=== PATIENT | female | born 1940 | race Caucasian/White ===

== ENCOUNTER → 2017-07-21 | Outpatient (CLI) | payer MEDICARE, OTHER ==
--- NOTE | 2017-07-21 15:39 | US ---
EXAMINATION TYPE: US thyroid st tissue head/neck DATE OF EXAM: 07/21/2017 COMPARISON: NONE CLINICAL HISTORY: Thyroiditis E06.9. GLAND SIZE: Right Lobe: 4.4 x 1.6x 1.5 cm Overall Parenchyma: homogenous Left Lobe: 4.0 x 1.5 x 1.5 cm Overall Parenchyma: homogeneous Isthmus Thickness: 0.5 cm NODULES RIGHT: # of nodules measured on right: 2 1. 0.5 X 0.4 x 0.3 cm hypoechoic mixed nodule at the mid medial pole with well-defined margins. Thi s nodule is wider than tall and shows no intranodular vascularity. 2. 0.4 X 0.3 x 0.3 cm hypoechoic cystic nodule at the lower pole with well-defined margins. This no dule is wide as is tall and shows no intranodular vascularity. LEFT: # of nodules measured on left: 1 1. 1 X 0.7 x 0.7 cm isoechoic solid consolidated nodule at the lower pole with well-defined margin s. This nodule is wider as is tall and shows no intranodular vascularity. ISTHMUS: # of nodules measured in the isthmus: 1 1. 0.9 X 0.8 x 0.4 cm hypoechoic mixed nodule at the right pole with well-defined margins. This no dule is wider than tall and shows intranodular vascularity. Bilateral neck scanned, no evidence of lymphadenopathy. 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 Subcentimeter isthmus nodule. Isoechoic left thyroid nodule
== END | disposition home or self-care (01) ==
LOC: RADUSWWP 14:02
PROVIDERS: ATTEND Family Medicine
DX: E04.2 Nontoxic multinodular goiter (principal)
CPT/HCPCS: 76536

== ENCOUNTER → 2018-01-22 | Outpatient (CLI) | payer MEDICARE, OTHER ==
--- NOTE | 2018-01-24 12:45 | US ---
EXAMINATION TYPE: US thyroid st tissue head/neck DATE OF EXAM: 01/22/2018 COMPARISON: US 2018 CLINICAL HISTORY: E06.9 Thyroiditis. GLAND SIZE: Right Lobe: 3.8 x 1.6 x 2.0 cm Overall Parenchyma: homogenous Left Lobe: 4.2 x 1.2 x 1.2 cm Overall Parenchyma: homogeneous Isthmus Thickness: 3.2 cm NODULES RIGHT: # of nodules measured on right: 2 1. 0.5 X 0.4 x 0.4 cm isoechoic mixed nodule at the lower pole with poorly defined margins. This n odule is wide as is tall and shows no intranodular vascularity. Prior size: 0.5 x 0.4 x 0.3 cm 2. 0.5 X 0.4 x 0.4 cm hypoechoic cystic nodule at the lower pole with well-defined margins. This no dule is wide as is tall and shows no intranodular vascularity. Prior size: 0.4 x 0.3 x 0.3 cm LEFT: # of nodules measured on left: 1 1. 1.2 X 0.7 x 0.8 cm isoechoic solid nodule at the lower pole with well-defined (consolidation of 2 nodules0 margins. This nodule is taller than wide and shows intranodular vascularity. Prior size: 0.9 x 0.8 x 0.4 cm ISTHMUS: # of nodules measured in the isthmus: 1 1. 0.8 X 0.8 x 0.4 cm hypoechoic mixed nodule at the mid pole with well-defined margins. This nodu le is wider than tall and shows intranodular vascularity. Prior size: 0.9 x 0.8 x 0.4 cm Bilateral neck scanned: hyperechoic nodule noted inferior to right thyroid = 0.5 x 0.5 x 0.3cm; hyper echoic nodule. This may be a parathyroid. Lymph node appearance noted inferior to left thyroid = 1.0 x 0.5 x 0.6cm . IMPRESSION: 1. Enlarging left lobe thyroid nodule with maximum size of 1.2 x 0.7 x 0.8 cm increased from 0.9 x 0. 4 x 0.8 cm. 2. Remaining subcentimeter nodules appear stable. 3. Possible parathyroid inferior to the right thyroid. 4. A lymph node inferior to the left lobe thyroid.
== END | disposition home or self-care (01) ==
LOC: RADUSWWP 15:43
PROVIDERS: ATTEND Family Medicine
DX: E04.2 Nontoxic multinodular goiter (principal)
CPT/HCPCS: 76536

== ENCOUNTER 2018-02-25 09:27 | Day surgery (SDC) | payer MEDICARE, OTHER ==
[2018-02-25 10:20] VITALS: TEMP 98.1
[2018-02-25] MEDS ORDERED: ALPRAZolam 0.25 MG TAB PO STA (10:23)
[2018-02-25 10:45] VITALS: RESP 14
[2018-02-25 11:00] VITALS: BP 149/80; PULSE 56
--- NOTE | 2018-02-25 11:18 | US ---
ULTRASOUND GUIDED FNA THYROID BIOPSY: CLINICAL HISTORY: 1.1 cm left thyroid nodule FINDINGS: The procedure was explained to the patient. The risks, complications, benefits and alternatives were discussed and any questions were answered. Informed consent was obtained. Patient was placed supin e on the ultrasound table and prepped and draped in the usual sterile fashion. Utilizing a 25 gauge needle, five passes were made into the requested nodule. Patient was stable throughout the procedure. Pathology is pending. All elements of maximal barrier technique were utilized. IMPRESSION: 1. Successful ultrasound guided FNA thyroid biopsy.
== END 2018-02-25 11:17 | disposition home or self-care (01) ==
LOC: RADPROMAIN 09:27
PROVIDERS: ATTEND Family Medicine
DX: E04.1 Nontoxic single thyroid nodule (principal); E06.9 Thyroiditis, unspecified
CPT/HCPCS: 10022; 76942; 88173; 88305